=== PATIENT | female | born 1940 | race Caucasian/White ===

== ENCOUNTER 2022-06-17 09:13 | Inpatient (IN) | payer OTHER ==
[~2022-06-17] VITALS: Ht 167.6 cm; Wt 77.6 kg
[2022-06-17] MEDS ORDERED: METFORMIN HCL500 M3 PO (12:01)
[2022-06-17] MEDS ORDERED: ATORVASTATIN CA10 MG PO (12:02)
[2022-06-17] MEDS ORDERED: GLIPIZIDE ER10 MG PO (12:02)
[2022-06-17] MEDS ORDERED: ENALAPRIL MALEA10 MG PO (12:02)
[2022-06-17] MEDS ORDERED: TENORMIN25 MG PO (12:03)
[2022-06-20] MEDS ORDERED: VITAMIN E180 M1 (11:43)
[2022-06-20] MEDS ORDERED: LINZESS290 MCG (11:43)
[2022-06-20] MEDS ORDERED: [UNRECOGNIZED DRUG - OTHER] (11:44)
[2022-06-20] MEDS ORDERED: FAMOTIDINE20 MG (11:44)
[2022-06-20] MEDS ORDERED: FENOFIBRATE54 MG (11:45)
[2022-06-20] MEDS ORDERED: HYDROCHLOROTH12.5 MG (11:46)
[2022-06-20] MEDS ORDERED: ST. JOSEPH ASPI81 M2 (11:46)
[2022-06-20] MEDS ORDERED: AMLODIPINE BESYL5 MG (11:46)
[2022-06-21] MEDS ORDERED: VITAMIN E268 M1 (10:16)
[2022-06-22] MEDS ORDERED: INTEGRA PLUS C1 EACH PO (08:02)
[2022-06-22] MEDS ORDERED: OXYC1TAB9 PO (08:02)
[2022-06-22] MEDS ORDERED: XARELTO10 MG PO (08:02)
[2022-06-22] MEDS ORDERED: BACTRIM DS TAB1 EACH PO (08:02)
== END 2022-06-24 13:41 | DRG 470 ==
LOC: SURH 06-20 06:00 → O/R 06-20 06:00 → SURH 06-20 07:15
PROVIDERS: ADMIT Orthopaedic Surgery Sports Medicine; ATTEND Orthopaedic Surgery Sports Medicine
PROC: 0SRC0J9 Replacement of Right Knee Joint with Synthetic Substitute, Cemented, Open Approach (ICD-10-PCS; principal; 2022-06-20 07:15)
PROC: 30233N1 Transfusion of Nonautologous Red Blood Cells into Peripheral Vein, Percutaneous Approach (ICD-10-PCS; 2022-06-22)
DX: M17.11 Unilateral primary osteoarthritis, right knee (principal); D64.9 Anemia, unspecified; I10 Essential (primary) hypertension; E11.9 Type 2 diabetes mellitus without complications; Z79.4 Long term (current) use of insulin; Z96.651 Presence of right artificial knee joint; Z20.822 Contact with and (suspected) exposure to COVID-19

== ENCOUNTER 2023-09-13 08:15 | Inpatient (IN) | payer OTHER ==
[~2023-09-13] VITALS: Ht 167.6 cm; Wt 77.1 kg
[~2023-09-13 08:15] MED LIST: AMLODIPINE BESYL5 MG; ATORVASTATIN CA10 MG PO; BACTRIM DS TAB1 EACH PO; ENALAPRIL MALEA10 MG PO; FAMOTIDINE20 MG; FENOFIBRATE54 MG; GLIPIZIDE ER10 MG PO; HYDROCHLOROTH12.5 MG; INTEGRA PLUS C1 EACH PO; LINZESS290 MCG; METFORMIN HCL500 M3 PO; OXYC1TAB9 PO; ST. JOSEPH ASPI81 M2; TENORMIN25 MG PO; VITAMIN E180 M1; VITAMIN E268 M1; XARELTO10 MG PO; [UNRECOGNIZED DRUG - OTHER]
[2023-09-13 09:08] LABS: HEMATOCRIT 36.7 % (36.0-45.00); HEMOGLOBIN 12.3 g/dL (12.0-15.00); MEAN CELL VOLUME 82.1 fL (80.00-100.00); MEAN CORPUSCULAR HEMOGLOBIN 27.4 pg (27.00-32.0); MEAN CORPUSCULAR HGB CONC 33.4 g/dl (32.0-36.0); PLATELET COUNT 345 K/uL (150-450); RED BLOOD COUNT 4.48 M/uL (4.00-6.00); RED CELL DISTRIBUTION WIDTH 15.2 % (11.5-14.5)
[2023-09-13 09:32] LABS: URINE BILIRRUBIN Negative (NEGATIVE); URINE BLOOD Negative; URINE COLOR Yellow; URINE GLUCOSE Negative (NEGATIVE); URINE KETONE Negative (NEGATIVE); URINE LEUKOCYTE Negative; URINE NITRATE Negative; URINE PROTEIN Negative (NEGATIVE); URINE UROBILINOGEN 0.2 E.U./dl
[2023-09-13 09:36] LABS: URINE BACTERIA 18.8 uL (0.0-1933); URINE EPITHELIAL CELLS 1.5 uL (0.0-38.8); URINE RBC 4.4 uL (0.0-20.8)
[2023-09-13 09:57] LABS: INR < 0.93; PARTIAL THROMBOPLASTIN TIME 29.3 SECONDS (22.0-34.0); PROTHROMBIN TIME 9.8 SECONDS (9.0-11.5)
[2023-09-13 09:58] LABS: URINE APPEARANCE CLEAR; URINE WBC 0.7 uL (0.0-23.2)
[2023-09-13 10:09] LABS: ALBUMIN 3.8 gm/dL (3.4-5.0); BILIRUBIN TOTAL 0.58 mg/dL (0.3-1.2); CALCIUM 10.1 mg/dL (8.5-10.1); CREATININE SERUM 0.7 mg/dL (0.55-1.02); GFR 80.11; GLOBULINA 3.5 G/DL (2.4-3.5); POTASSIUM 4.22 mEq/L (3.5-5.1); TOTAL PROTEIN 7.3 gm/dL (6.4-8.2)
[2023-09-18] MEDS ORDERED: KETOROLAC TROMETHAMINE 60 MG VIAL IM ONE (09:00)
[2023-09-18] MEDS ORDERED: VANCOMYCIN HCL 1,000 MG VIAL IR ONE (09:00)
[2023-09-18] MEDS ORDERED: TRANEXAMIC ACID 100MG/1ML (1000MG) AMPUL IV NR (09:00)
[2023-09-18] MEDS ORDERED: BUPIVACAINE HCL/PF 0.25% 30ML VIAL InF ONE (09:00)
[2023-09-18] MEDS ORDERED: CEFAZOLIN SODIUM 1,000 MG VIAL IV SCH ×2 (09:00→12:00)
[2023-09-18] MEDS ORDERED: TRANEXAMIC ACID 100MG/1ML (1000MG) AMPUL IV ONE (09:00)
[2023-09-18] MEDS ORDERED: LIDOCAINE HCL 1%/EPINEPHRINE 20ML VIAL IJ ONE (09:00)
[2023-09-18] MEDS ORDERED: POLYMYXIN B SULFATE 500,000 U VIAL IR ONE (09:00)
[2023-09-18] MEDS ORDERED: GENTAMICIN SULFATE 40 MG/ML VIAL IV SCH (10:07)
[2023-09-18] MEDS ORDERED: MORPHINE SULFATE 4 MG/ML CARTRIDGE IV PRN (10:15)
[2023-09-18] MEDS ORDERED: MORPHINE SULFATE 2 MG/ML CARTRIDGE IV NR (10:15)
[2023-09-18] MEDS ORDERED: ONDANSETRON HCL 2 MG/ML VIAL IV PRN (10:15)
[2023-09-18] MEDS ORDERED: SODIUM CHLORIDE 0.45 % 1,000 ML IV SCH (10:15)
[2023-09-18 11:34] LABS: HEMATOCRIT 32.4 % (36.0-45.00); HEMOGLOBIN 10.6 g/dL (12.0-15.00); RED BLOOD COUNT 3.91 M/uL (4.00-6.00)
[2023-09-18] MEDS ORDERED: ENALAPRIL MALEATE 10 MG TABLET PO SCH (17:00)
[2023-09-18] MEDS ORDERED: MetFORMIN HCL 500 MG TABLET PO SCH (17:00)
[2023-09-18] MEDS ORDERED: FAMOtidine 20 MG TABLET PO SCH (21:00)
[2023-09-18] MEDS ORDERED: ATENOLOL 50 MG TABLET PO SCH (21:00)
[2023-09-19 07:05] LABS: HEMOGLOBIN 10.8 g/dL (12.0-15.00); MEAN CELL VOLUME 83.2 fL (80.00-100.00); MEAN CORPUSCULAR HEMOGLOBIN 28.3 pg (27.00-32.0); PLATELET COUNT 298 K/uL (150-450); RED BLOOD COUNT 3.84 M/uL (4.00-6.00); RED CELL DISTRIBUTION WIDTH 15.2 % (11.5-14.5)
[2023-09-19] MEDS ORDERED: TRAMADOL HCL 50 MG TABLET PO PRN (08:15)
[2023-09-19] MEDS ORDERED: ATORVASTATIN CALCIUM 10 MG TABLET PO SCH (09:00)
[2023-09-19] MEDS ORDERED: IRON FUM,PS/FOLIC/BCOMP,C NO.9 1 CAP CAPSULE PO SCH (09:00)
[2023-09-19] MEDS ORDERED: RIVAROXABAN 10 MG TAB PO SCH (09:00)
[2023-09-19] MEDS ORDERED: SENNA/DOCUSATE SODIUM 1 TAB TABLET PO SCH (09:00)
[2023-09-19] MEDS ORDERED: HYDROCHLOROTHIAZIDE 12.5 MG CAPSULE PO SCH (09:00)
[2023-09-19] MEDS ORDERED: BACITRACIN 28.35 GM OINT.TUBE TOP SCH (09:00)
[2023-09-19] MEDS ORDERED: GLIPIZIDE 10 MG PO SCH (09:00)
[2023-09-20] MEDS ORDERED: Septra Ds Tablet PO (06:11)
[2023-09-20] MEDS ORDERED: TRAMADOL HCL50 MG PO (06:11)
[2023-09-20] MEDS ORDERED: INTEGRA PLUS C1 EACH PO (06:11)
[2023-09-20] MEDS ORDERED: XARELTO10 MG PO (06:11)
[2023-09-20 06:28] LABS: HEMATOCRIT 30.5 % (36.0-45.00); HEMOGLOBIN 10.5 g/dL (12.0-15.00); MEAN CELL VOLUME 82.9 fL (80.00-100.00); MEAN CORPUSCULAR HEMOGLOBIN 28.6 pg (27.00-32.0); MEAN CORPUSCULAR HGB CONC 34.5 g/dl (32.0-36.0); PLATELET COUNT 276 K/uL (150-450); RED BLOOD COUNT 3.68 M/uL (4.00-6.00)
[2023-09-20] MEDS ORDERED: SULFAMETHOXAZOLE/TRIMETHOPRIM DS 1 TAB PO SCH (09:00)
[2023-09-20] MEDS ORDERED: MINERAL OIL 30 ML BLIST.PACK PO NR (09:30)
[2023-09-20] MEDS ORDERED: LACTULOSE 20 G/30 ML BLIST.PACK PO NR (09:30)
[2023-09-20] MEDS ORDERED: MAGNESIUM HYDROXIDE 30 ML BLIST.PACK PO NR (09:30)
== END 2023-09-20 11:47 | disposition home or self-care (01) | DRG 470 ==
LOC: O/R 09-18 06:07 → SURH 09-18 08:15 → SURG 09-18 11:08 → SURH 09-18 15:15 → SURG 09-20 11:47
PROVIDERS: ADMIT Orthopaedic Surgery Sports Medicine; ATTEND Orthopaedic Surgery Sports Medicine
PROC: 0SRD0J9 Replacement of Left Knee Joint with Synthetic Substitute, Cemented, Open Approach (ICD-10-PCS; principal; 2023-09-18 15:15)
DX: M17.12 Unilateral primary osteoarthritis, left knee (principal); E11.9 Type 2 diabetes mellitus without complications; Z79.4 Long term (current) use of insulin